=== PATIENT | female | born 2005 | race American Indian/Alaskan Native ===

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

== ENCOUNTER 2024-02-17 01:15 | Emergency (ER) | payer SELFPAY ==
[2024-02-17] MEDS: OLANZapine 10 MG Vial IM ONE (01:37)
[2024-02-17] MEDS: LORazepam 2 MG/ML SDV IM ONE (02:07)
[2024-02-17 02:15] LABS: BASOPHILS PERCENT AUTO 0.4 % (0.0-1.0); EOSINOPHILS PERCENT AUTO 0.8 % (1.0-3.0); HEMATOCRIT 42.7 % (37.0-47.0); LYMPHOCYTES PERCENT AUTO 41.5 % (20.5-50.1); MEAN CORPUSCULAR HEMOGLOBIN 30.3 pg (27.0-34.0); MEAN CORPUSCULAR HGB CONC 32.8 g/dL (33.0-35.0); MEAN CORPUSCULAR VOLUME 92.4 fL (80-100); MONOCYTES PERCENT AUTO 7.2 % (2-8); NEUTROPHILS PERCENT AUTO 50.1 % (42.2-75.2); PLATELET COUNT,PLT 332 10^3/uL (150-450); RED BLOOD CELL COUNT 4.62 10^6/uL (4.2-5.4); WHITE BLOOD CELL COUNT,WBC 7.4 10^3/uL (5.0-10.0)
[2024-02-17 02:28] LABS: HCG QUALITATIVE,SERUM NEGATIVE (NEGATIVE)
[2024-02-17 02:38] LABS: A/G RATIO 1.2; ALANINE AMINOTRANSFERASE,ALT 21 U/L (14-59); ALBUMIN 4.2 g/dL (3.4-5.0); ALKALINE PHOSPHATASE 104 U/L (46-116); ANION GAP 15.9 mEq/L (7-13); ASPARTATE AMNIOTRANSFERASE,AST 20 U/L (15-37); BILIRUBIN TOTAL 0.1 mg/dL (0.2-1.0); BLOOD UREA NITROGEN,BUN 5 mg/dL (7-18); BUN/CREATININE RATIO 6.7 (No establ ref range); CALCIUM 8.3 mg/dL (8.5-10.1); CARBON DIOXIDE,CO2 25 mmol/L (21-32); CHLORIDE,CL 113 mmol/L (98-107); CREATININE 0.75 mg/dL (0.55-1.02); GLUCOSE RANDOM 113 mg/dL (70-99); POTASSIUM,K 3.9 mmol/L (3.5-5.1); PROTEIN TOTAL,TP 7.7 g/dL (6.4-8.2); SODIUM,NA 150 mmol/L (136-145)
[2024-02-17 02:40] LABS: ESTIMATED GFR 118 mL/min (>=60)
[2024-02-17 02:41] LABS: ETHANOL BLOOD MEDICAL 360 mg/dL (0)
[2024-02-17 03:05] LABS: AMPHETAMINES,URINE NEGATIVE (NEGATIVE); BARBITURATES,URINE NEGATIVE (NEGATIVE); BENZODIAZEPINE,URINE NEGATIVE (NEGATIVE); MDMA (ECSTASY), URINE NEGATIVE (NEGATIVE); METHADONE,URINE NEGATIVE (NEGATIVE); METHAMPHETAMINES,URINE NEGATIVE (NEGATIVE); OPIATES,URINE NEGATIVE (NEGATIVE); OXYCODONE,URINE NEGATIVE (NEGATIVE); PHENCYCLIDINE,URINE NEGATIVE (NEGATIVE); TCA,URINE NEGATIVE (NEGATIVE)
[2024-02-17] MEDS: Lactated Ringers 1,000 ML IV ONE (03:30)
[2024-02-17] MEDS: Sodium Chloride 0.9% 10 ML Syringe FLUSH PRN (04:56)
[2024-02-17] MEDS: OLANZapine 10 MG Vial ONE (04:56)
[2024-02-17] MEDS: LORazepam 2 MG/ML SDV IVPUSH ONE (05:01)
[2024-02-17] MEDS: Sodium Chloride 0.9% 1,000 ML IV ONE (14:42)
[2024-02-17 16:50] VITALS: BP 99/67; PULSE 74
[2024-02-21 11:46] LABS: HEP B SURFACE AG Negative (Negative)
[2024-02-21 14:46] LABS: HCV AB BY CIA INTERP Negative (Negative); HEPC AB BY CIA INDEX <0.02 IV
== END 2024-02-17 16:59 | disposition home or self-care (01) ==
LOC: DL.ED 01:15
DX: R45.6 Violent behavior (principal); F10.921 Alcohol use, unspecified with intoxication delirium; E86.0 Dehydration; E87.1 Hypo-osmolality and hyponatremia; E87.20 Acidosis, unspecified; E66.9 Obesity, unspecified
CPT/HCPCS: 36415; 80053; 80305; 80307; 84703; 85025; 86803; 87340; 87389; 96361; 96372; 96374; 99284; J2060; J2405; J7030; J7120; J3490

== ENCOUNTER 2025-08-12 02:08 | Emergency (ER) | payer MEDICAID ==
[2025-08-12 02:52] LABS: BASOPHILS PERCENT AUTO 0.6 % (0.0-1.0); EOSINOPHILS PERCENT AUTO 1.8 % (1.0-3.0); LYMPHOCYTES PERCENT AUTO 34.1 % (20.5-50.1); MONOCYTES PERCENT AUTO 7.7 % (2-8); NEUTROPHILS PERCENT AUTO 55.8 % (42.2-75.2); PLATELET COUNT,PLT 322 10^3/uL (150-450); RED BLOOD CELL COUNT 4.83 10^6/uL (4.2-5.4); WHITE BLOOD CELL COUNT,WBC 5.1 10^3/uL (5.0-10.0)
[2025-08-12 03:16] LABS: A/G RATIO 1.1; ALANINE AMINOTRANSFERASE,ALT 18.0 U/L (14-59); ASPARTATE AMNIOTRANSFERASE,AST 20.0 U/L (15-37); BILIRUBIN TOTAL 0.2 mg/dL (0.2-1.0); BLOOD UREA NITROGEN,BUN 9.0 mg/dL (7-18); CARBON DIOXIDE,CO2 22.0 mmol/L (21-32); CHLORIDE,CL 108.0 mmol/L (98-107); CREATININE 0.63 mg/dL (0.55-1.02); EST CRCL DRUG DOSING (CG) 114.28 mL/min; ESTIMATED GFR 129.0 mL/min (>=60); ETHANOL BLOOD MEDICAL 166.0 mg/dL (0); GLUCOSE RANDOM 89.0 mg/dL (70-99); POTASSIUM,K 3.6 mmol/L (3.5-5.1); PROTEIN TOTAL,TP 8.3 g/dL (6.4-8.2); SODIUM,NA 146.0 mmol/L (136-145); TSH ULTRASENSITIVE 0.64 uIU/mL (0.36-3.74)
[2025-08-12 04:53] VITALS: BP 117/64; PULSE 80
== END 2025-08-12 04:44 | disposition home or self-care (01) ==
LOC: DL.ED 02:08
DX: F10.10 Alcohol abuse, uncomplicated (principal); E66.9 Obesity, unspecified; Z68.28 Body mass index [BMI] 28.0-28.9, adult; Y90.6 Blood alcohol level of 120-199 mg/100 ml
CPT/HCPCS: 36415; 80053; 80143; 80179; 80307; 83735; 84443; 85025; 99283; 99284

== ENCOUNTER 2025-08-28 00:16 | Emergency (ER) | payer MEDICAID ==
[2025-08-28] MEDS: Take Home: Ondansetron 4 MG Tab.DIS, 5 Tab Pack PO ONE (00:30)
[2025-08-28] MEDS: Ondansetron 4 MG Tab.DIS PO ONE (00:30)
[2025-08-28 00:46] VITALS: BP 112/64; PULSE 64
== END 2025-08-28 00:51 | disposition home or self-care (01) ==
LOC: DL.ED 00:16
DX: F10.921 Alcohol use, unspecified with intoxication delirium (principal); R11.2 Nausea with vomiting, unspecified; E66.9 Obesity, unspecified; Z68.28 Body mass index [BMI] 28.0-28.9, adult; Y90.9 Presence of alcohol in blood, level not specified
CPT/HCPCS: 99284; A9270-GY; Q0162